=== PATIENT | female | born 1990 | race Hispanic/Latino ===

== ENCOUNTER 2021-09-28 18:58 | Emergency (ER) | payer MEDICAID, SELFPAY ==
[2021-09-28 20:01] LABS: Bilirubin Neg (Negative); Blood, Urine 50 (Negative); Clarity Clear (Clear); Glucose, Urine (Dipstick) Normal (Negative); Ketone, Urine 150 mg/dL (Negative); Leukocyte 100 (Negative); Nitrite Negative (Negative); Protein, Urine (Dipstick) 30 mg/dl (Neg-Trace); Specific Gravity, Urine 1.025 (1.002-1.036)
[2021-09-28] MEDS ORDERED: Acetaminophen 500 MG TAB ONE (20:05)
[2021-09-28 20:22] LABS: Bacteria/HPF 2+ HPF (None Seen); Mucous/LPF 1+ LPF (<2+); RBC/HPF 0-3 HPF (0-3); Squamous Epithelial 0-3 HPF (0-3); WBC/HPF 0-3 HPF (0-3)
[2021-09-28 20:28] LABS: #Monocytes 0.5 10x3/uL (0.0-1.1); #Neutrophils 6.6 10x3/uL (1.5-8.4); %Basophils 0.1 % (0.0-2.0); %Eosinophils 0.1 % (0.0-6.0); %Lymphocytes 6.7 % (18.0-47.0); %Monocytes 6.8 % (0.0-10.0); Hemoglobin 12.2 g/dL (12.0-15.5); Mean Corpuscular HGB CONC 33.8 g/dL (32.0-36.0); Mean Corpuscular Hemoglobin 29.8 pg (27.0-33.0); Mean Platelet Volume 10.1 fl (7.4-10.4); Platelet Count 264 10x3/uL (150-450); RBC Distribution Width 12.6 % (11.5-14.5); White Blood Cell (WBC) Count 7.6 10x3/uL (3.5-10.5)
[2021-09-28 20:36] LABS: ALT (SGPT) 13 U/L (8-55); AST (SGOT) 23 U/L (5-34); Albumin 3.8 g/dL (3.5-5.0); Alkaline Phosphatase 48 U/L (40-110); Anion Gap 14 mmol/L (10-20); BUN (Urea Nitrogen) 5 mg/dL (7.0-18.7); Bilirubin, Total 0.4 mg/dL (0.2-1.2); Calc. Creatinine Clearance 0 mL/min (70-130); Calcium 9.1 mg/dL (7.8-10.44); Carbon Dioxide 23 mmol/L (22-29); Chloride 101 mmol/L (98-107); Globulin 3.3 g/dL (2.4-3.5); Glucose 87 mg/dL (70-105); Potassium 3.7 mmol/L (3.5-5.1); Protein, Total 7.1 g/dL (6.0-8.3); Sodium 134 mmol/L (136-145)
== END 2021-09-28 21:37 | disposition home or self-care (01) ==
LOC: CSHERS 18:58
DX: O23.41 Unspecified infection of urinary tract in pregnancy, first trimester (principal); O34.81 Maternal care for other abnormalities of pelvic organs, first trimester; N83.201 Unspecified ovarian cyst, right side; N83.202 Unspecified ovarian cyst, left side; Z3A.13 13 weeks gestation of pregnancy
CPT/HCPCS: 76856; 80053; 81003; 81015; 85025; 93976

== ENCOUNTER 2022-03-25 15:13 | Inpatient (IN) | payer OTHER ==
[~2022-03-25 15:13] MED LIST: Bupivacaine 0.25% HCL 30 ML VIAL ONE
[2022-03-25 15:45] VITALS: BMI 31.4
[2022-03-25] MEDS: Lactated Ringer's 1,000 ML IV SCH ×2 (16:00→17:07)
[2022-03-25] MEDS ORDERED: Misoprostol 200 MCG TAB PR PRN (16:17)
[2022-03-25] MEDS ORDERED: Ondansetron PF 4 MG/2 ML Vial IVP PRN ×3 (16:17→23:37)
[2022-03-25] MEDS ORDERED: Lidocaine 1% (PF) 30 ML VIAL SC PRN (16:17)
[2022-03-25] MEDS ORDERED: Ibuprofen 800 MG TAB PO PRN (16:17)
[2022-03-25] MEDS ORDERED: Carboprost 250 MCG/ML AMP IM PRN (16:17)
[2022-03-25] MEDS ORDERED: Promethazine HCl 25 MG/ML VIAL IM PRN ×3 (16:17→23:37)
[2022-03-25] MEDS ORDERED: hydrALAZINE 20 MG/ML VIAL SLOW IVP PRN ×2 (16:17→23:37)
[2022-03-25] MEDS ORDERED: Diphenoxylate HCl/Atropine Tablet PO PRN (16:17)
[2022-03-25] MEDS ORDERED: Butorphanol Tartrate 1 MG/ML VIAL SLOW IVP PRN (16:17)
[2022-03-25] MEDS ORDERED: Methylergonovine 0.2 MG/ML VIAL IM PRN (16:17)
[2022-03-25] MEDS ORDERED: HYDROcodone/Acetaminophen 5/325 mg Tablet PO PRN ×2 (16:17→23:37)
[2022-03-25] MEDS ORDERED: Acetaminophen 500 MG TAB PO PRN (16:17)
[2022-03-25] MEDS ORDERED: NS w/ Oxytocin 30 units 500 ML IV SCH ×2 (16:30)
[2022-03-25 16:35] LABS: Hemoglobin 12.5 g/dL (12.0-15.5); Mean Corpuscular HGB CONC 33.7 g/dL (32.0-36.0); Mean Corpuscular Hemoglobin 28.5 pg (27.0-33.0); Mean Corpuscular Volume 84.7 fl (81.6-98.3); Mean Platelet Volume 10.6 fl (7.4-10.4); Platelet Count 281 10x3/uL (150-450); RBC Distribution Width 14.8 % (11.5-14.5); Red Blood Cell (RBC) Count 4.38 10x6/uL (3.90-5.03); White Blood Cell (WBC) Count 9.2 10x3/uL (3.5-10.5)
[2022-03-25] MEDS ORDERED: Fentanyl 2 mcg/Bup 0.1% Cadd 100 ML ONE (16:57)
[2022-03-25 17:06] LABS: Hep B Surf Ag Non-Reactive S/CO (NonReactive)
[2022-03-25 17:07] LABS: Syphilis Antibody Nonreactive (Nonreactive); Syphilis Antibody Index 0.03 S/CO (<1.00 Non-Reactive)
[2022-03-25 17:20] LABS: HBSAg Index 0.21 S/CO (0-0.99)
[2022-03-25 17:26] LABS: SARS-CoV-2 NAA Rapid Test Not Detected (NotDetected)
[2022-03-25] MEDS ORDERED: Moisturizing Cream (Eucerin) 113 GM JAR TOP PRN (17:48)
[2022-03-25] MEDS ORDERED: Acetaminophen 325 MG TAB PO PRN (17:48)
[2022-03-25] MEDS ORDERED: diphenhydrAMINE 50 MG/ML VIAL IVP PRN (17:48)
[2022-03-25] MEDS ORDERED: ePHEDrine Sulfate 50 MG/10 ML VIAL SLOW IVP PRN (17:48)
[2022-03-25] MEDS ORDERED: Naloxone HCl 0.4 mg/ml Vial IVP PRN ×2 (17:48)
[2022-03-25] MEDS ORDERED: Lactated Ringer's 500 ML IV PRN (17:53)
[2022-03-25] MEDS ORDERED: Communication Order-Pharmacy FS SCH (18:00)
[2022-03-25] MEDS ORDERED: Fentanyl 2 mcg/Bupivacaine 0.1% Cassette 100 ML EPIDURAL SCH (18:00)
[2022-03-25] MEDS ORDERED: Benzocaine-Menthol 82.5 ML CAN TOP PRN (23:37)
[2022-03-25] MEDS ORDERED: Bisacodyl 10 MG SUPP PR PRN (23:37)
[2022-03-25] MEDS ORDERED: diphenhydrAMINE 25 MG CAP PO PRN (23:37)
[2022-03-25] MEDS ORDERED: Lanolin Ointment 7 GM TUBE TOP PRN (23:37)
[2022-03-25] MEDS ORDERED: Milk Of Magnesia 30 ML UDCUP PO PRN (23:37)
[2022-03-25] MEDS ORDERED: Boostrix 0.5 ML (Tdap) VIAL IM ONE (23:37)
[2022-03-26] MEDS: Ibuprofen 800 MG TAB PO SCH ×3 (00:51→17:12)
[2022-03-26] MEDS ORDERED: Ibuprofen 800 MG TAB PO SCH (06:00)
[2022-03-26] MEDS: Ferrous Sulfate 325 MG TAB PO SCH ×2 (07:41→16:28)
[2022-03-26] MEDS: Docusate 100 MG CAP PO SCH ×2 (08:24→22:36)
[2022-03-26] MEDS: Prenatal Vitamin 1 TAB PO SCH (08:24)
[2022-03-27] MEDS: Ibuprofen 800 MG TAB PO SCH ×2 (01:18→09:11)
[2022-03-27] MEDS: Ferrous Sulfate 325 MG TAB PO SCH (09:10)
[2022-03-27] MEDS: Prenatal Vitamin 1 TAB PO SCH (09:11)
[2022-03-27] MEDS: Docusate 100 MG CAP PO SCH (09:11)
[2022-03-27] MEDS ORDERED: Measles/Mumps/Rubella 10 MCG/0.5 ML VIAL SC ONE (09:45)
[2022-03-27 11:48] VITALS: BP 121/81; TEMP 98.3
== END 2022-03-27 12:45 | disposition home or self-care (01) | DRG 807 ==
LOC: CSHLD/OP 15:13 → CSHLD 19:43 → CSHPED 22:31
PROVIDERS: ADMIT Family Medicine; ATTEND Family Medicine
PROC: 10E0XZZ Delivery of Products of Conception, External Approach (ICD-10-PCS; principal; 2022-03-25)
PROC: 0HQ9XZZ Repair Perineum Skin, External Approach (ICD-10-PCS; 2022-03-25)
DX: O42.02 Full-term premature rupture of membranes, onset of labor within 24 hours of rupture (principal); Z37.0 Single live birth; Z20.822 Contact with and (suspected) exposure to COVID-19; Z3A.38 38 weeks gestation of pregnancy; O70.0 First degree perineal laceration during delivery
CPT/HCPCS: 36415; 85027; 86780; 86850; 86900; 86901; 87340; 90707; J2590; S0020; U0002

== ENCOUNTER 2023-04-30 15:34 | Emergency (ER) | payer OTHER ==
[2023-04-30 16:04] LABS: Bilirubin Neg (Negative); Blood, Urine 150 (Negative); Glucose, Urine (Dipstick) Normal (Negative); Ketone, Urine 150 mg/dL (Negative); Leukocyte 500 (Negative); Nitrite Negative (Negative); Protein, Urine (Dipstick) 30 mg/dl (Neg-Trace); Specific Gravity, Urine 1.015 (1.005-1.030); pH, Urine 6.5 (5.0-9.0)
[2023-04-30 16:12] LABS: Clarity Hazy (Clear)
[2023-04-30 16:13] LABS: CAUTI Indications for Culture Pregnancy
[2023-04-30 16:14] LABS: Bacteria/HPF 2+ HPF (None Seen); Mucous/LPF 1+ LPF (<2+)
[2023-04-30 16:16] LABS: Urine Culture Reflex Yes Yes
[2023-04-30] MEDS ORDERED: Acetaminophen 500 MG TAB ONE (16:26)
[2023-04-30 17:11] LABS: SARS-CoV-2 NAA Rapid Test DETECTED (NotDetected)
== END 2023-04-30 17:31 | disposition home or self-care (01) ==
LOC: CSHERS 15:34
DX: U07.1 COVID-19 (principal); O98.519 Other viral diseases complicating pregnancy, unspecified trimester; Z3A.00 Weeks of gestation of pregnancy not specified
CPT/HCPCS: 81001; 87086; 99283

== ENCOUNTER 2023-05-05 16:54 | Emergency (ER) | payer OTHER ==
[2023-05-05 17:47] LABS: #Eosinphils 0.1 10x3/uL (0.0-0.5); #Monocytes 0.5 10x3/uL (0.0-1.1); %Basophils 0.2 % (0.0-2.0); %Eosinophils 0.9 % (0.0-6.0); %Lymphocytes 35.9 % (18.0-47.0); %Neutrophils 56.7 % (40.0-75.0); Hematocrit 38.5 % (34.9-44.5); Hemoglobin 12.9 g/dL (12.0-15.5); Mean Corpuscular HGB CONC 33.5 g/dL (32.0-36.0); Mean Corpuscular Hemoglobin 29.3 pg (27.0-33.0); Mean Corpuscular Volume 87.3 fl (81.6-98.3); Mean Platelet Volume 10.3 fl (7.4-10.4); Platelet Count 316 10x3/uL (150-450); RBC Distribution Width 12.2 % (11.5-14.5); Red Blood Cell (RBC) Count 4.41 10x6/uL (3.90-5.03); White Blood Cell (WBC) Count 8.8 10x3/uL (3.5-10.5)
[2023-05-05 17:50] LABS: Bilirubin Neg (Negative); Blood, Urine 50 (Negative); Clarity Clear (Clear); Glucose, Urine (Dipstick) Normal (Negative); Ketone, Urine Negative (Negative); Leukocyte 100 (Negative); Nitrite Negative (Negative); Protein, Urine (Dipstick) Negative (Neg-Trace); Urobilinogen Normal mg/dL (Less than 2)
[2023-05-05 18:02] LABS: ALT (SGPT) 7 U/L (8-55); AST (SGOT) 17 U/L (5-34); Albumin 4.2 g/dL (3.5-5.0); Alkaline Phosphatase 65 U/L (40-110); Anion Gap 14 mmol/L (10-20); BUN (Urea Nitrogen) 7 mg/dL (7.0-18.7); Bilirubin, Total 0.2 mg/dL (0.2-1.2); Calc. Creatinine Clearance 0 mL/min (70-130); Calcium 9.4 mg/dL (7.8-10.44); Carbon Dioxide 26 mmol/L (22-29); Chloride 102 mmol/L (98-107); Estimated GFR 119; Globulin 3.4 g/dL (2.4-3.5); Glucose 103 mg/dL (70-105); Potassium 3.9 mmol/L (3.5-5.1); Protein, Total 7.6 g/dL (6.0-8.3); Sodium 138 mmol/L (136-145)
[2023-05-05 18:11] LABS: CAUTI Indications for Culture Pregnancy; RBC/HPF 0-3 HPF (0-3); Squamous Epithelial 0-3 HPF (0-3); WBC/HPF 0-3 HPF (0-3)
[2023-05-05 18:12] LABS: Bacteria/HPF 1+ HPF (None Seen)
[2023-05-05 18:13] LABS: Urine Culture Reflex Yes Yes
== END 2023-05-05 20:30 | disposition home or self-care (01) ==
LOC: CSHERS 16:54
DX: O03.4 Incomplete spontaneous abortion without complication (principal); O02.0 Blighted ovum and nonhydatidiform mole
CPT/HCPCS: 36415; 76817; 80053; 81001; 84702; 85025; 87086

== ENCOUNTER 2025-05-07 22:00 | Inpatient (IN) | payer OTHER ==
[~2025-05-07 22:00] MED LIST changes: -Bupivacaine 0.25% HCL 30 ML VIAL ONE; +Bupivacaine/Epinephrine 0.25% 30 ML VIAL ONE
[2025-05-07 22:19] VITALS: BMI 34.4
[2025-05-07] MEDS ORDERED: HYDROcodone/Acetaminophen 5/325 mg Tablet PO PRN (22:20)
[2025-05-07] MEDS ORDERED: Oxytocin 30 units/NS 500 ML 500 ML IV SCH ×2 (22:20)
[2025-05-07] MEDS ORDERED: Diphenoxylate HCl/Atropine Tablet PO PRN (22:20)
[2025-05-07] MEDS ORDERED: Methylergonovine 0.2 MG/ML VIAL IM PRN (22:20)
[2025-05-07] MEDS ORDERED: Carboprost 250 MCG/ML AMP IM PRN (22:20)
[2025-05-07] MEDS ORDERED: Tranexamic Acid 1,000 MG/10 ML VIAL IVP PRN (22:20)
[2025-05-07] MEDS ORDERED: Ondansetron PF 4 MG/2 ML Vial IVP PRN (22:20)
[2025-05-07] MEDS ORDERED: hydrALAZINE 20 MG/ML VIAL SLOW IVP PRN (22:20)
[2025-05-07] MEDS ORDERED: Lidocaine 1% (PF) 30 ML VIAL SC PRN (22:20)
[2025-05-07 22:59] LABS: Hematocrit 38.6 % (34.9-44.5); Hemoglobin 12.7 g/dL (12.0-15.5); Mean Corpuscular Hemoglobin 28.2 pg (27.0-33.0); Mean Corpuscular Volume 85.6 fL (81.6-98.3); Platelet Count 246 10x3/uL (150-450); Red Blood Cell (RBC) Count 4.51 10x6/uL (3.90-5.03); White Blood Cell (WBC) Count 8.45 10x3/uL (3.5-10.5)
[2025-05-07 23:18] LABS: Fetal Membranes Rupture RUPTURE DETECTED (No Rupture)
[2025-05-07 23:33] LABS: Hep B Surf Ag - L&D Non-Reactive S/CO (NonReactive)
[2025-05-07 23:39] LABS: Syphilis Antibody Index 0.07 S/CO (<1.00 Non-Reactive)
[2025-05-08] MEDS: fentaNYL/Ropivacaine Epidural 100 ML ONE (01:04)
[2025-05-08] MEDS ORDERED: Ondansetron PF 4 MG/2 ML Vial IVP PRN ×2 (01:12→02:53)
[2025-05-08] MEDS ORDERED: diphenhydrAMINE 50 MG/ML VIAL IVP PRN (01:12)
[2025-05-08] MEDS ORDERED: Acetaminophen 325 MG TAB PO PRN (01:12)
[2025-05-08] MEDS ORDERED: fentaNYL 2 mcg/Ropivacaine 0.2% Epidural 100 ML CADD EPIDURAL SCH (01:15)
[2025-05-08] MEDS ORDERED: Communication Order-Pharmacy FS SCH (01:15)
[2025-05-08] MEDS: Oxytocin 30 units/NS 500 ML 500 ML IV SCH (02:08)
[2025-05-08] MEDS: Acetaminophen 500 MG TAB PO PRN (02:25)
[2025-05-08] MEDS: Ibuprofen 800 MG TAB PO PRN (02:25)
[2025-05-08] MEDS ORDERED: Lanolin Ointment 7 GM TUBE TOP PRN (02:53)
[2025-05-08] MEDS ORDERED: Boostrix 0.5 ML (Tdap) VIAL (>/=7 yrs of age) IM ONE (02:53)
[2025-05-08] MEDS ORDERED: diphenhydrAMINE 25 MG CAP PO PRN (02:53)
[2025-05-08] MEDS ORDERED: hydrALAZINE 20 MG/ML VIAL SLOW IVP PRN (02:53)
[2025-05-08] MEDS ORDERED: Bisacodyl 10 MG SUPP PR PRN (02:53)
[2025-05-08] MEDS ORDERED: Milk Of Magnesia 30 ML UDCUP PO PRN (02:53)
[2025-05-08] MEDS: Ferrous Sulfate 325 MG TAB PO SCH (08:06)
[2025-05-08] MEDS: HYDROcodone/Acetaminophen 5/325 mg Tablet PO PRN (08:07)
[2025-05-08] MEDS: Oxytocin 30 units/NS 500 ML 500 ML ONE (10:15)
[2025-05-08] MEDS: Methylergonovine 0.2 MG/ML VIAL ONE (10:22)
[2025-05-08] MEDS: Tranexamic Acid 1,000 MG/10 ML VIAL ONE ×3 (10:25→19:50)
[2025-05-08 10:50] LABS: #Basophils Less than 0.03 10x3/uL (0.0-0.2); #Eosinophils Less than 0.03 10x3/uL (0.0-0.5); #Monocytes 0.51 10x3/uL (0.0-1.1); #Neutrophils 8.34 10x3/uL (1.5-8.4); %Basophils 0.1 % (0.0-2.0); %Eosinophils 0.1 % (0.0-6.0); %Lymphocytes 17.7 % (18.0-47.0); %Monocytes 4.7 % (0.0-10.0); %Neutrophils 77.0 % (40.0-75.0); Hematocrit 32.5 % (34.9-44.5); Hemoglobin 10.6 g/dL (12.0-15.5); Mean Corpuscular Hemoglobin 28.0 pg (27.0-33.0); Mean Corpuscular Volume 86.0 fL (81.6-98.3); Platelet Count 209 10x3/uL (150-450); Red Blood Cell (RBC) Count 3.78 10x6/uL (3.90-5.03); White Blood Cell (WBC) Count 10.83 10x3/uL (3.5-10.5)
[2025-05-08 10:51] LABS: Platelet Count 209.0 10x3/uL (150-450)
[2025-05-08 11:13] LABS: D-Dimer Test 16.68 mcg/mL (0.19-0.50); Fibrinogen 438.0 mg/dL (220-504); INR-International Normal Ratio 0.9; PTT 28.3 sec (22.0-33.0); Prothrombin Time 10.0 sec (9.5-12.1)
[2025-05-08] MEDS: Ibuprofen 800 MG TAB PO SCH (17:53)
[2025-05-08] MEDS: Carboprost 250 MCG/ML AMP ONE (19:50)
[2025-05-08] MEDS: Oxytocin 30 units/NS 500 ML 0 ML ONE (19:50)
[2025-05-09 06:03] LABS: Hematocrit 25.7 % (34.9-44.5); Hemoglobin 8.4 g/dL (12.0-15.5)
[2025-05-09 08:42] VITALS: BP 100/66; TEMP 97.3
[2025-05-09] MEDS: Measles/Mumps/Rubella 10 MCG/0.5 ML VIAL SC ONE (12:30)
== END 2025-05-09 17:25 | disposition home or self-care (01) | DRG 807 ==
LOC: CSHLD 22:00 → CSHPP 05-08 04:15
PROVIDERS: ADMIT Family Medicine; ATTEND Family Medicine
PROC: 10E0XZZ Delivery of Products of Conception, External Approach (ICD-10-PCS; principal; 2025-05-08)
PROC: 4A1HXCZ Monitoring of Products of Conception, Cardiac Rate, External Approach (ICD-10-PCS; 2025-05-08)
DX: O42.92 Full-term premature rupture of membranes, unspecified as to length of time between rupture and onset of labor (principal); Z37.0 Single live birth; O48.0 Post-term pregnancy; Z79.899 Other long term (current) drug therapy; Z3A.40 40 weeks gestation of pregnancy
CPT/HCPCS: 36415; 51702; 84112; 85014; 85018; 85025; 85027; 85049; 85300; 85362; 85384; 85610; 85730; 86780; 86850; 86900; 86901; 87340; 90707; J2210; J2590; J3010; J7120